=== PATIENT | female | born 1945 | race Asian ===

== ENCOUNTER 2017-03-20 13:07 | Emergency (ER) | payer MEDICARE, BC ==
[~2017-03-20] VITALS: Ht 152.4 cm; Wt 59.2 kg
[~2017-03-20 13:07] MED LIST: AMLO10TA2 PO; ASPI325T17 PO; ATOR40TA PO; HYDR-3341 PO; LOSA25TA5 PO; METF500T4 PO; NIFE20CA PO
[2017-03-20 13:12] VITALS: BP 121/76
[2017-03-20] MEDS ORDERED: CARBAMIDE PEROXIDE EAR DROPS 6.5%, 15ML RIGHT EAR ONE (14:00)
[2017-03-20] MEDS ORDERED: CARBAMIDE PEROXIDE EAR DROPS 6.5%, 15ML ONE (14:02)
== END 2017-03-20 15:03 | disposition home or self-care (01) ==
LOC: ED 14:22
DX: H61.21 Impacted cerumen, right ear (principal); H92.02 Otalgia, left ear; E11.9 Type 2 diabetes mellitus without complications; I10 Essential (primary) hypertension
CPT/HCPCS: 69209; 99282

== ENCOUNTER 2017-07-07 19:40 | Emergency (ER) | payer MEDICARE, BC ==
[~2017-07-07] VITALS: Ht 152.4 cm; Wt 59.2 kg
[2017-07-07 20:35] LABS: HEMATOCRIT 38.8 % (34.6-47.8); HEMOGLOBIN 12.9 g/dL (11.7-16.4); WHITE BLOOD COUNT 4.4 x10^3/uL (3.4-10)
[2017-07-07 20:42] LABS: BLOOD UREA NITROGEN 12 mg/dL (7-18)
[2017-07-07 20:50] LABS: IS PT STATUS REG ER OR PRE ER? YES
[2017-07-07] MEDS ORDERED: POTASSIUM CHLORIDE 20 MEQ TAB.ER.PRT ONE (22:28)
[2017-07-07] MEDS ORDERED: POTASSIUM CHLORIDE 20 MEQ TAB.ER.PRT PO ONE (22:30)
[2017-07-07 22:44] VITALS: BP 148/86
== END 2017-07-07 22:46 | disposition home or self-care (01) ==
LOC: ED 21:43
DX: R42 Dizziness and giddiness (principal); E87.6 Hypokalemia; E11.9 Type 2 diabetes mellitus without complications; I10 Essential (primary) hypertension
CPT/HCPCS: 36415; 71010; 80048; 81003; 82010; 82040; 82800; 83690; 84484; 85025; 93005; 99285

== ENCOUNTER 2018-05-16 15:38 | Emergency (ER) | payer MEDICARE, BC ==
[~2018-05-16] VITALS: Ht 185.4 cm; Wt 71.5 kg
[~2018-05-16 15:38] MED LIST changes: -AMLO10TA2 PO; +AMLO10TA6 PO; -LOSA25TA5 PO; +LOSA25TA6 PO; +METF500T17 PO; -METF500T4 PO
[2018-05-16 16:24] LABS: BASOPHILS # (AUTO) 0.01 x10^3/uL (0-0.1); BASOPHILS % (AUTO) 0 % (0-1); EOSINOPHILS # (AUTO) 0.11 x10^3/uL (0-0.4); EOSINOPHILS % (AUTO) 3 % (1-7); LYMPHOCYTES # (AUTO) 1.23 x10^3/uL (1-3.4); LYMPHOCYTES % (AUTO) 32 % (22-44); MD NO; MEAN CORPUSCULAR HEMOGLOBIN 27.7 pg (27.0-34.8); MEAN CORPUSCULAR HGB CONC 32.8 g/dL (32.4-35.8); MEAN CORPUSCULAR VOLUME 84.4 fL (80-100); MEAN PLATELET VOLUME 9.6 fL (7.4-10.4); MONOCYTES # (AUTO) 0.25 x10^3/uL (0.2-0.8); MONOCYTES % (AUTO) 7 % (2-9); NEUTROPHILS # (AUTO) 2.23 x10^3/uL (1.8-6.8); NEUTROPHILS % (AUTO) 58 % (42-75); PLATELET COUNT 136 x10^3/uL (130-400); RED BLOOD COUNT 4.28 x10^6/uL (3.82-5.3); RED CELL DISTRIBUTION WIDTH 14.7 % (9.6-15.2)
[2018-05-16 16:33] LABS: ALBUMIN 3.5 g/dL (3.4-5.0); ANION GAP 10 mmol/L (5-15); CALCIUM 8.3 mg/dL (8.5-10.1); CHLORIDE 112 mmol/L (98-107); CREATININE 1.09 mg/dL (0.55-1.02)
[2018-05-16] MEDS ORDERED: FISH OIL (16:56)
[2018-05-16] MEDS ORDERED: VITAMIN B12 (16:56)
[2018-05-16] MEDS ORDERED: ATOR20TA9 PO (16:56)
[2018-05-16 17:22] LABS: MICROSCOPIC NOT IND
[2018-05-16 17:32] LABS: CULTURE INDICATED? NO
[2018-05-16 19:41] VITALS: BP 137/82
== END 2018-05-16 19:43 | disposition home or self-care (01) ==
LOC: ED 18:53
DX: R55 Syncope and collapse (principal); E11.9 Type 2 diabetes mellitus without complications; I10 Essential (primary) hypertension
CPT/HCPCS: 36415; 80048; 81003; 82040; 82375; 85025; 93005; 99285

== ENCOUNTER 2018-10-04 23:05 | Emergency (ER) | payer MEDICARE, BC ==
[~2018-10-04] VITALS: Ht 152.4 cm; Wt 61.0 kg
[~2018-10-04 23:05] MED LIST changes: -AMLO10TA6 PO; +AMLO10TA8 PO; +ATOR20TA37 PO; +FISH OIL; +LOSA25TA25 PO; -LOSA25TA6 PO; +VITAMIN B12
--- NOTE | 2018-10-04 23:07 | NUR ---
NIL X WHEN CALLED FOR TRIAGE. Addendum: 10/04/18 at 2307 by JUAN X 1
--- NOTE | 2018-10-04 23:30 | NUR ---
PT AMB TO BR AND BACK TO ROOM WITH STEADY GAIT. UA SENT.
--- NOTE | 2018-10-04 23:44 | NUR ---
FIRST CONTACT WITH PT. PT STATES "I HAVE A BLADDER INFECTIONS AND NOW I HAVE BEEN BLEEDING SINCE 1200." "I HAVE BEEN DRINKING A LOT OF WATER AND CRANBERRY JUICE". PT. REPORTS PAINFUL URINATION AND FREQUENCY. PT DENIES ABD PAIN/FEVER AT THIS TIME. BP/SPO2 MONITORS IN PLACE. CALL LIGHT WITHIN REACH. AWAITING EDMD ASSESSMENT AT THIS TIME.
[2018-10-04 23:48] LABS: CULTURE INDICATED? YES; MICROSCOPIC INDICATED
[2018-10-05 00:25] VITALS: BP 144/81
--- NOTE | 2018-10-05 00:27 | NUR ---
PT GIVEN DC INSTRUCTIONS AND SCRIPTS. PT EDUCATED REGARDING DC MEDICATIONS. PT'S AOX4. REPSS EVEN AND UNLABORED. PT AMB TO DC WITH STEADY GAIT. NO ACUTE DISTRESS AT DC.
== END 2018-10-05 00:27 | disposition home or self-care (01) ==
LOC: ED 23:58
DX: N30.01 Acute cystitis with hematuria (principal); I10 Essential (primary) hypertension; E11.9 Type 2 diabetes mellitus without complications; Z88.1 Allergy status to other antibiotic agents; Z88.0 Allergy status to penicillin
CPT/HCPCS: 81001; 87077; 87086; 87186; 99283

== ENCOUNTER 2018-12-06 09:45 | Emergency (ER) | payer MEDICARE, BC ==
[~2018-12-06] VITALS: Ht 152.4 cm; Wt 59.0 kg
[2018-12-06 10:07] VITALS: BP 154/82
--- NOTE | 2018-12-06 10:22 | NUR ---
Pt c/o "dry cough" for two months. Pt takes medication for HTN. PT denies cp, sob, n/v/d, fevers, chills, malaise, or weight loss. Pt is AOX4, lung sounds clear in all monique, skin is pink, warm, and dry, and pt ambulates with steady gait and balance. NADN. No needs expressed. Call light within reach.
--- NOTE | 2018-12-06 11:05 | NUR ---
Patient given discharge instructions and they have confirmed that they understand the instructions. Patient ambulatory with steady gait. Pt left with prescription, d/c paperwork, and all personal belongings.
== END 2018-12-06 11:14 | disposition home or self-care (01) ==
LOC: ED 11:01
DX: R05 Cough (principal); I10 Essential (primary) hypertension; E11.9 Type 2 diabetes mellitus without complications
CPT/HCPCS: 71046; 99283

== ENCOUNTER 2019-05-22 08:59 | Inpatient (IN) | payer MEDICARE, BC ==
[~2019-05-22] VITALS: Ht 152.4 cm; Wt 40.5 kg
--- NOTE | 2019-05-22 09:53 | NUR ---
PT C/O DARK BLOODY DIARRHEA SINCE 0200 THIS MORNING (3 EPISODES). PT DENEIS ANY HX OF SAME. PT OOB AND AMBULATED TO BATHROOM, COLLECTION OF STOOL SAMPLE EXPLAINED.
--- NOTE | 2019-05-22 10:01 | NUR ---
PT PROVIDED STOOL SAMPLE +GUIAC. RTD TO ROOM W/O INCIDENT. BP AND PULSE OX IN PLACE, CALL LIGHT W/I REACH
--- NOTE | 2019-05-22 10:04 | NUR ---
REPORT FROM DOUG DIANE. ASSUMED CARE OF PATIENT AT THIS TIME.
[2019-05-22] MEDS ORDERED: METF500T17 PO (10:12)
[2019-05-22] MEDS ORDERED: IBUP-1902 PO (10:13)
[2019-05-22 10:35] LABS: BASOPHILS # (AUTO) 0.02 x10^3/uL (0-0.1); BASOPHILS % (AUTO) 0 % (0-1); EOSINOPHILS # (AUTO) 0.01 x10^3/uL (0-0.4); EOSINOPHILS % (AUTO) 0 % (1-7); LYMPHOCYTES # (AUTO) 1.07 x10^3/uL (1-3.4); LYMPHOCYTES % (AUTO) 16 % (22-44); MD NO; MEAN CORPUSCULAR HGB CONC 33.2 g/dL (32.4-35.8); MEAN CORPUSCULAR VOLUME 87.5 fL (80-100); MEAN PLATELET VOLUME 8.6 fL (7.4-10.4); MONOCYTES # (AUTO) 0.13 x10^3/uL (0.2-0.8); MONOCYTES % (AUTO) 2 % (2-9); NEUTROPHILS # (AUTO) 5.41 x10^3/uL (1.8-6.8); NEUTROPHILS % (AUTO) 82 % (42-75); PLATELET COUNT 136 x10^3/uL (130-400); RED CELL DISTRIBUTION WIDTH 14.4 % (9.6-15.2)
[2019-05-22 10:46] LABS: ALANINE AMINOTRANSFERASE 14 U/L (12-78); ALBUMIN 3.1 g/dL (3.4-5.0); ANION GAP 5 mmol/L (5-15); CALCIUM 8.3 mg/dL (8.5-10.1); CHLORIDE 114 mmol/L (98-107); CREATININE 1.03 mg/dL (0.55-1.02)
[2019-05-22 10:49] LABS: ALKALINE PHOSPHATASE 57 U/L (45-117); BILIRUBIN,TOTAL 0.3 mg/dL (0.2-1.0); TOTAL PROTEIN 6.1 g/dL (6.4-8.2)
--- NOTE | 2019-05-22 11:08 | NUR ---
RESULTS BACK, AT BEDSIDE FOR RECHECK. IV ESTABLISHED. PATIENT TO BE ADMITTED. PATIENT REPORTS TAKING 2 (325MG) ASA PER DAY FOR "A LONG TIME". AWAITING FURTHER ORDERS, NADN. NO ADDITIONAL NEEDS AT THIS TIME, MEDICATIONS TO BE ORDERED.
--- NOTE | 2019-05-22 11:12 | NUR ---
VSS AND UPDATED IN CHART, AWAITING FURTHER ORDERS. PATIENT SITTING IN GURNEY, RESP EVEN/UNLABORED.
[2019-05-22] MEDS ORDERED: PANTOPRAZOLE 40 MG IV ONE (11:15)
[2019-05-22] MEDS ORDERED: PANTOPRAZOLE 40 MG IV IVPush ONE (11:30)
[2019-05-22] MEDS: PANTOPRAZOLE 80 MG in SODIUM CHLORIDE 0.9% 100 ML IV SCH ×2 (11:38→21:09)
--- NOTE | 2019-05-22 11:57 | NUR ---
NEW ORDERS FOR ADMIT, AWAITING BED ASSIGNMENT.
[2019-05-22] MEDS ORDERED: SODIUM CHLORIDE FLUSH 10ML SYR IVF PRN (12:00)
--- NOTE | 2019-05-22 12:27 | NUR ---
LEVEL OF CARE CHANGED TO MEDICAL.
[2019-05-22] MEDS ORDERED: ENALAPRILAT 1.25 MG/ML, 2ML IVPush PRN (12:30)
[2019-05-22] MEDS ORDERED: ACETAMINOPHEN 325 MG TABLET PO PRN (12:30)
--- NOTE | 2019-05-22 13:04 | NUR ---
REPORT TO DOUG MADRIGAL. PT TO BE TRANSPORTED TO FLOOR FOR ADMIT.
--- NOTE | 2019-05-22 13:23 | NUR ---
DR KOLB AT BEDSIDE, VSS AND UPDATED IN CHART. PATIENT SITTING IN [facility] [place]. WAITING TRANSPORT.
[2019-05-22 14:15] VITALS: BP 114/69
[2019-05-22 19:13] VITALS: BP 103/60
[2019-05-22] MEDS: ATORVASTATIN 20 MG TABLET PO SCH (21:00)
[2019-05-22] MEDS: LACTATED RINGERS 1,000 ML IV SCH (21:11)
[2019-05-23] VITALS (10 sets, daily range): BP systolic 105–131; BP diastolic 64–80
[2019-05-23 06:45] LABS: ANION GAP 3 mmol/L (5-15); CALCIUM 7.7 mg/dL (8.5-10.1); CHLORIDE 117 mmol/L (98-107)
[2019-05-23 06:46] LABS: CREATININE 0.99 mg/dL (0.55-1.02)
[2019-05-23] MEDS: PANTOPRAZOLE 80 MG in SODIUM CHLORIDE 0.9% 100 ML IV SCH (07:07)
[2019-05-23] MEDS ORDERED: PANTOPRAZOLE 80 MG in SODIUM CHLORIDE 0.9% 100 ML IV SCH (07:30)
[2019-05-23] MEDS: AMLODIPINE 10 MG TAB PO SCH (08:05)
[2019-05-23] MEDS: LOSARTAN 25MG TABLET PO SCH (08:05)
[2019-05-23] MEDS ORDERED: FENTANYL PF 100 MCG/2ML ONE (09:49)
[2019-05-23] MEDS ORDERED: MIDAZOLAM 1 MG/ML, 5ML ONE (09:49)
[2019-05-23] MEDS: LACTATED RINGERS 1,000 ML IV SCH (13:21)
[2019-05-23] MEDS ORDERED: OMNIPAQUE 350 MG/ML, 100ML BOTTLE ONE (17:44)
[2019-05-23] MEDS: ATORVASTATIN 20 MG TABLET PO SCH (20:05)
[2019-05-24 00:58] VITALS: BP 118/58
[2019-05-24] MEDS: LACTATED RINGERS 1,000 ML IV SCH (04:56)
[2019-05-24] MEDS ORDERED: OMEPRAZOLE 20 MG CAPSULE.DR PO SCH ×2 (06:00)
[2019-05-24 06:21] LABS: ANION GAP 5 mmol/L (5-15); CALCIUM 8.3 mg/dL (8.5-10.1); CHLORIDE 114 mmol/L (98-107); CREATININE 1.05 mg/dL (0.55-1.02)
[2019-05-24 06:31] LABS: INTERNATIONAL NORMALIZED RATIO 1.01 (0.93-1.1); PROTHROMBIN TIME 10.6 Seconds (9.6-11.5)
[2019-05-24 06:57] VITALS: BP 118/67
[2019-05-24] MEDS: AMLODIPINE 10 MG TAB PO SCH (09:11)
[2019-05-24] MEDS: LOSARTAN 25MG TABLET PO SCH (09:11)
[2019-05-24] MEDS ORDERED: OMEP-110 PO (15:25)
== END 2019-05-24 16:25 | disposition home or self-care (01) | DRG 378 ==
LOC: ED 11:43 → EDIP 11:44 → ED 13:10 → 3N 13:52 → DCLOUNGE 05-24 16:16
PROVIDERS: ADMIT Family Medicine; ATTEND Family Medicine
PROC: 30233N1 Transfusion of Nonautologous Red Blood Cells into Peripheral Vein, Percutaneous Approach (ICD-10-PCS; 2019-05-23)
PROC: 0DB68ZX Excision of Stomach, Via Natural or Artificial Opening Endoscopic, Diagnostic (ICD-10-PCS; principal; 2019-05-23 15:00)
DX: K29.61 Other gastritis with bleeding (principal); I82.890 Acute embolism and thrombosis of other specified veins; I86.4 Gastric varices; K25.4 Chronic or unspecified gastric ulcer with hemorrhage; D64.9 Anemia, unspecified; D50.0 Iron deficiency anemia secondary to blood loss (chronic); E11.9 Type 2 diabetes mellitus without complications; E78.5 Hyperlipidemia, unspecified; I10 Essential (primary) hypertension; I34.0 Nonrheumatic mitral (valve) insufficiency; K74.60 Unspecified cirrhosis of liver; Z79.82 Long term (current) use of aspirin; Z79.84 Long term (current) use of oral hypoglycemic drugs; Z80.0 Family history of malignant neoplasm of digestive organs; T39.395A Adverse effect of other nonsteroidal anti-inflammatory drugs [NSAID], initial encounter
CPT/HCPCS: 36415; 36430; 74177; 80048; 80053; 85014; 85018; 85025; 85610; 85730; 86850; 86900; 86923; 88305; 96374; 99152; 99153; G0378; J2250; J3010; Q9967; C9113; J7120; P9016

== ENCOUNTER 2019-07-28 02:29 | Emergency (ER) | payer MEDICARE, BC ==
[~2019-07-28] VITALS: Ht 152.4 cm; Wt 55.8 kg
[~2019-07-28 02:29] MED LIST changes: +IBUP-1902 PO; +OMEP-110 PO
[2019-07-28] MEDS ORDERED: IBUPROFEN 600 MG TABLET PO ONE (03:00)
[2019-07-28] MEDS ORDERED: IBUPROFEN 600 MG TABLET ONE (03:05)
[2019-07-28 03:27] LABS: MEAN CORPUSCULAR HEMOGLOBIN 24.4 pg (27.0-34.8); MEAN CORPUSCULAR HGB CONC 31.5 g/dL (32.4-35.8); MEAN CORPUSCULAR VOLUME 77.4 fL (80-100); PLATELET COUNT 149 x10^3/uL (130-400); RED BLOOD COUNT 3.76 x10^6/uL (3.82-5.3); RED CELL DISTRIBUTION WIDTH 18.6 % (9.6-15.2)
[2019-07-28 03:30] LABS: MD YES
[2019-07-28 03:35] LABS: ALBUMIN 3.4 g/dL (3.4-5.0); ANION GAP 5 mmol/L (5-15); CALCIUM 8.5 mg/dL (8.5-10.1); CHLORIDE 114 mmol/L (98-107); CREATININE 0.98 mg/dL (0.55-1.02)
[2019-07-28 03:38] LABS: BASOS#(MANUAL) 0.06 x10^3/uL (0-0.1); BASOS% (MANUAL) 2 % (0-1); EOS#(MANUAL) 0.03 x10^3/uL (0.0-0.4); EOS% (MANUAL) 1 % (1-7); LYMPH#(MANUAL) 1.15 x10^3/uL (1-3.4); LYMPHS% (MANUAL) 37 % (22-44); MONOS#(MANUAL) 0.09 x10^3/uL (0.3-2.7); MONOS% (MANUAL) 3 % (2-9); SEG#(MANUAL) 1.77 x10^3/uL (1.8-6.8); SEGS% (MANUAL) 57 % (42-75)
[2019-07-28 03:39] LABS: ANISOCYTOSIS 1+; OVALOCYTES 1+; TROPONIN I < 0.015 ng/mL (0.000-0.045)
[2019-07-28 03:40] LABS: <PLATELET ESTIMATE> ADEQUATE; LARGE PLATELETS 1+; MICROCYTOSIS 1+
[2019-07-28 04:25] VITALS: BP 131/74
== END 2019-07-28 04:30 | disposition home or self-care (01) ==
LOC: ED 02:49
DX: R07.1 Chest pain on breathing (principal); I10 Essential (primary) hypertension; E11.9 Type 2 diabetes mellitus without complications; M54.9 Dorsalgia, unspecified
CPT/HCPCS: 36415; 71046; 80048; 82040; 84484; 85025; 85379; 93005; 99284

== ENCOUNTER → 2019-12-12 | Outpatient (CLI) | payer MEDICARE, BC | END | disposition home or self-care (01) | LOC: CFH 07:04 | PROVIDERS: ATTEND Internal Medicine Cardiovascular Disease | DX: I08.8 Other rheumatic multiple valve diseases (principal); I10 Essential (primary) hypertension | CPT/HCPCS: 78452; 93017; 93306; A9502 ==

== ENCOUNTER 2020-05-02 03:53 | Observation (INO) | payer MEDICARE, BC ==
[~2020-05-02] VITALS: Ht 152.4 cm; Wt 59.0 kg
[2020-05-02 04:28] LABS: BASOPHILS % (AUTO) 0 % (0-1); EOSINOPHILS % (AUTO) 3 % (1-7); LYMPHOCYTES % (AUTO) 37 % (22-44); MEAN CORPUSCULAR HEMOGLOBIN 28.4 pg (27.0-34.8); MEAN PLATELET VOLUME 8.4 fL (7.4-10.4); MONOCYTES % (AUTO) 7 % (2-9); NEUTROPHILS % (AUTO) 54 % (42-75); PLATELET COUNT 102 x10^3/uL (130-400); RED BLOOD COUNT 4.67 x10^6/uL (3.82-5.3); RED CELL DISTRIBUTION WIDTH 13.8 % (9.6-15.2)
[2020-05-02 04:30] LABS: MD NO
[2020-05-02 04:41] LABS: ALBUMIN 3.5 g/dL (3.4-5.0); ANION GAP 4 mmol/L (5-15); CALCIUM 8.7 mg/dL (8.5-10.1); CHLORIDE 112 mmol/L (98-107)
[2020-05-02 04:47] LABS: ALANINE AMINOTRANSFERASE 38 U/L (12-78); ALKALINE PHOSPHATASE 58 U/L (45-117); BILIRUBIN,TOTAL 0.9 mg/dL (0.2-1.0); CREATININE 1.01 mg/dL (0.55-1.02); TOTAL PROTEIN 7.8 g/dL (6.4-8.2); TROPONIN I < 0.015 ng/mL (0.000-0.045)
--- NOTE | 2020-05-02 05:00 | NUR ---
VANITA. A&o x4, answering questions appropriately. States she got up to go to bathroom at approx 0100 and had sudden onset, atraumatic, nonradiating 10/10 L sided chest pain. States she had similar episode approx 1 year ago, no dx of cardiac issues and has had f/u with cards. Pt took 324 asa at home prior to EMS arrival. EMS medicated with 0.4 nitro with good effect. Pain from 10/10 to 5/10 upon arrival to ED. Denies SOB. Denies N/V/D. Denies abd pain. Denies fever/chills. NSR noted on monitor. Remains on tele and continuous O2 monitoring. Bed low, side rails up, call borja within reach
--- NOTE | 2020-05-02 05:28 | NUR ---
Pt resting comfortably. Remains on tele, NSR noted on monitor. Bed low, side rails up, call borja within reach
[2020-05-02] MEDS ORDERED: SODIUM CHLORIDE FLUSH 10ML SYR IVF PRN (05:30)
--- NOTE | 2020-05-02 06:10 | NUR ---
Hospitalist at bedside
[2020-05-02] MEDS ORDERED: ONDANSETRON 2MG/ML, 2ML IVPush PRN (07:00)
[2020-05-02] MEDS ORDERED: DOCUSATE 100 MG CAPSULE PO PRN (07:00)
[2020-05-02] MEDS ORDERED: BISACODYL 10 MG SUPP PR PRN (07:00)
[2020-05-02] MEDS ORDERED: ACETAMINOPHEN 325 MG TABLET PO PRN (07:00)
[2020-05-02] MEDS ORDERED: POLYETHYLENE GLYCOL 17 GM PACKET PO PRN (07:00)
[2020-05-02] MEDS ORDERED: NITROGLYCERIN 0.4 MG BOTTLE (25 TABS) SL PRN (07:00)
[2020-05-02] MEDS ORDERED: ENALAPRILAT 1.25 MG/ML, 2ML IVPush PRN (07:00)
[2020-05-02] MEDS ORDERED: IBUPROFEN 600 MG TABLET PO PRN (07:00)
--- NOTE | 2020-05-02 07:05 | NUR ---
RECEIVED REPORT FROM TIMMY MCGRAW RN. PT RESTING ON [place]. HAILEE. MONITORS REMAIN IN PLACE. HOSPITAL BED ORDERED FOR PT.
--- NOTE | 2020-05-02 07:32 | NUR ---
REPORT GIVEN TO AGNIESZKA SALDAÑA RN. ALL QUESTIONS ANSWERED. AWAITING PT TRANSPORT.
[2020-05-02] MEDS ORDERED: D5%-0.45NACL+KCL 20MEQ 1,000 ML IV SCH (08:36)
[2020-05-02] MEDS ORDERED: LOSARTAN 50MG TABLET PO SCH (09:00)
[2020-05-02] MEDS ORDERED: AMLODIPINE 10 MG TAB PO SCH (09:00)
[2020-05-02] MEDS ORDERED: POTASSIUM CHLORIDE 20 MEQ TAB.ER.PRT PO ONE (09:00)
[2020-05-02] MEDS ORDERED: metFORMIN 500 MG TABLET PO SCH (09:00)
[2020-05-02] MEDS ORDERED: HEPARIN 5,000 UNITS/ML, 1ML SQ SCH (09:00)
[2020-05-02 09:05] VITALS: BP 141/75
[2020-05-02 10:14] LABS: TROPONIN I < 0.015 ng/mL (0.000-0.045)
[2020-05-02 14:35] VITALS: BP 132/82
[2020-05-02] MEDS ORDERED: ATORVASTATIN 20 MG TABLET PO SCH (21:00)
== END 2020-05-02 14:15 | disposition home or self-care (01) ==
LOC: ED 05:06 → EDIP 05:46 → INTOOBSV 05:46 → 5SO 07:51
PROVIDERS: ADMIT Family Medicine; ATTEND Family Medicine
DX: R07.89 Other chest pain (principal); E87.5 Hyperkalemia; I10 Essential (primary) hypertension; I20.0 Unstable angina; E11.9 Type 2 diabetes mellitus without complications; F41.9 Anxiety disorder, unspecified; Z79.899 Other long term (current) drug therapy; Z79.84 Long term (current) use of oral hypoglycemic drugs; Z86.39 Personal history of other endocrine, nutritional and metabolic disease; Z88.0 Allergy status to penicillin
CPT/HCPCS: 36415; 71045; 80053; 82962; 83036; 84484; 85025; 93005; 96372; 99285; G0378; J1644